=== PATIENT | male | born 1955 | race Hispanic/Latino ===

== ENCOUNTER 2018-10-08 06:00 | Day surgery (SDC) | payer BC ==
[2018-10-08] MEDS ORDERED: ECOTRIN PO NR (06:28)
[2018-10-08 06:53] LABS: Basophils # (Auto) 0.1 K/mm3 (0.0-0.1); Basophils % (Auto) 0.8 % (0.0-1.8); Eosinophils # (Auto) 0.2 K/mm3 (0.0-0.4); Eosinophils % (Auto) 2.6 % (0.0-4.3); Hematocrit 34.5 % (35.5-45.6); Hemoglobin 10.9 gm/dl (11.8-15.2); Lymphocytes # (Auto) 1.7 K/mm3 (1.2-5.4); Lymphocytes % (Auto) 25.5 % (13.4-35.0); Mean Corpuscular HGB Conc 32 % (32-34); Mean Corpuscular Volume 71 fl (84-94); Monocytes # (Auto) 0.7 K/mm3 (0.0-0.8); Monocytes % (Auto) 10.4 % (0.0-7.3); Platelet Count 304 K/mm3 (140-440); Red Cell Distribution Width 19.4 % (13.2-15.2)
[2018-10-08] MEDS ORDERED: NACL 0.9% 500 ML 500 ML IV SCH (07:00)
[2018-10-08 07:04] LABS: BUN/Creatinine Ratio 16; Blood Urea Nitrogen 13 mg/dL (9-20); Calcium 9.5 mg/dL (8.4-10.2); Hemolysis Index 2
[2018-10-08 07:05] LABS: INR 0.96 (0.87-1.13)
[2018-10-08 07:06] LABS: Partial Thromboplastin Time 26.2 Sec. (24.2-36.6)
[2018-10-08] MEDS ORDERED: HEPARIN 10,000 UNITS/10 ML ONE (08:23)
[2018-10-08] MEDS ORDERED: HEPARIN/NS 5000 UNIT/500ML(CATH LAB) 1,000 ML IR ONE (08:23)
[2018-10-08] MEDS ORDERED: NITROGLYCERIN SYRINGE 3 ML ONE (08:24)
[2018-10-08] MEDS ORDERED: CALAN ONE (08:24)
[2018-10-08] MEDS ORDERED: HALFPRIN EC PO ONE (08:30)
[2018-10-08] MEDS: VERSED ONE ×2 (08:57→09:13)
[2018-10-08] MEDS: SUBLIMAZE ONE ×2 (08:58→09:13)
[2018-10-08] MEDS: XYLOCAINE 2% INFILTRATI ONE ×2 (08:58→09:11)
[2018-10-08] MEDS ORDERED: SUBLIMAZE ONE (09:20)
[2018-10-08] MEDS ORDERED: XYLOCAINE 2% INFILTRATI ONE (09:39)
[2018-10-08] MEDS ORDERED: PHENYLEPHRINE/NS Syringe 1,000 MCG/10 ML IV ONE (09:45)
[2018-10-08] MEDS ORDERED: NEO SYNEPHRINE ONE (09:45)
[2018-10-08] MEDS ORDERED: ULTRAM PO PRN (10:34)
--- NOTE | 2018-10-08 10:39 | Short Stay Summary ---
Short Stay Documentation Date of service: 10/08/18 - History H&P: obtained from office - Allergies and Medications Current Medications: Allergies lisinopril Adverse Reaction (Verified 03/05/15 19:27) Angioedema losartan [Losartan] Adverse Reaction (Verified 03/05/15 22:34) Angioedema Home Medications Medication Instructions Recorded Confirmed Last Taken Type Aspirin [Aspirin BABY CHEW TAB] 81 mg PO DAILY 01/19/15 10/08/18 10/07/18 History 81mg AtorvaSTATin [Lipitor] 10 mg PO QHS 01/19/15 10/08/18 10/07/18 History 10mg Clopidogrel Bisulfate [Clopidogrel] 75 mg PO DAILY 01/19/15 10/08/18 10/08/18 05:00 History 75mg ISOSORBIDE MONOnitrate [Imdur ER] 30 mg PO DAILY 01/19/15 10/08/18 10/07/18 History 30mg Metformin HCl 1,000 mg PO BID 01/19/15 10/08/18 10/06/18 History 1000mg Nebivolol (Nf) [Bystolic (Nf)] 10 mg PO DAILY 01/19/15 10/08/18 10/08/18 05:00 History 10mg Cholecalciferol Vit D3 [Vitamin D3 5,000 units PO DAILY 10/08/18 10/08/18 10/07/18 History 1,000 UNIT TAB] 5000units Magnesium Oxide [Mag-Ox] 2 tab PO BID 10/08/18 10/08/18 10/07/18 05:00 History 2 tabs amLODIPine [Norvasc] 5 mg PO DAILY 10/08/18 10/08/18 10/08/18 05:00 History 5mg cloNIDine [Catapres] 0.1 mg PO PRN PRN 10/08/18 10/08/18 10/05/18 History 0.1mg glipiZIDE XL [Glucotrol Xl] 2.5 mg PO DAILY 10/08/18 10/08/18 10/07/18 History 2.5mg Active Medications Aspirin (Ecotrin) 325 mg PO ONCE NR Stop: 10/08/18 16:00 Sodium Chloride (Nacl 0.9% 500 Ml) 500 mls @ 50 mls/hr IV DIRECT GIRMA Stop: 10/08/18 16:59 Last Admin: 10/08/18 08:04 Dose: 50 mls/hr Documented by: - Brief post op/procedure progress note Date of procedure: 10/08/18 Pre-op diagnosis: unstable angina Post-op diagnosis: same Procedure: see report Anesthesia: local Estimated blood loss: none Pathology: none - Disposition Condition at discharge: Good Disposition: [id number] TO HOME OR SELFCARE - Discharge Diagnoses (1) Morbid obesity with BMI of 40.0-44.9, adult Status: Chronic (2) Hyperlipemia, mixed Status: Chronic (3) CAD (coronary artery disease) Status: Chronic Qualifiers: Coronary Disease-Associated Artery/Lesion type: [place] artery Associated angina: with stable angina (4) Carotid stenosis Status: Chronic (5) Diabetes mellitus Status: Chronic Qualifiers: Diabetes mellitus type: type 2 Diabetes mellitus rodent exterminator insulin use: with rodent exterminator use Diabetes mellitus complication status: with circulatory complication Diabetes mellitus complication detail: with other circulatory complications Qualified Code(s): E11.59 - Type 2 diabetes mellitus with other circulatory complications; Z79.4 - alf (current) use of insulin (6) HTN (hypertension) Status: Chronic Short Stay Discharge Plan Activity: advance as tolerated Diet: low fat, low cholesterol, low salt, diabetic Special Instructions: hold Metformin (for two days) Follow up with: JANELL CASTILLO MD [Primary Care Provider] - 7 Days
[2018-10-08] MEDS ORDERED: TYLENOL PO ONE (11:00)
[2018-10-08] MEDS ORDERED: HALFPRIN EC PO SCH (11:00)
--- NOTE | 2018-10-08 12:49 | Cardiac Catherization Report ---
LEFT HEART CATHETERIZATION CLINICAL INFORMATION: This is a 63-year-old gentleman with morbid obesity, diabetes, hypertension, cholesterol, known coronary artery disease with nondrug-eluting stent in the mid LAD and 4.5 x 13 stent in the RCA, but is having recurrent discomfort in chest, is here for suspected coronary artery disease, so procedure was done via sedation. START TIME: 8:57 a.m. FINISHED TIME: 9:55 a.m. SEDATION: 58 minutes of moderate sedation. Procedure was initially tried done via the right radial approach, but unsuccessful, tried to go through the right femoral, it also could not do, so we went through a left radial artery sterile technique, local anesthesia, 6-Portuguese radial sheath inserted. FINDINGS: Left system engaged with a JL3.5 catheter, left main is large and patent, bifurcates into LAD, proximal is patent, mid stent is patent with in-stent restenosis at 30% at the ostial of the diagonal, which is across the stent and has a 90% lesion. Rest of the diagonal was patent of a [id number] caliber vessel. The LAD becomes a small caliber vessel with diffuse disease with distal section with a focal area of 80% of a less than 2-mm vessel. Circumflex proximal is patent, goes into a medium caliber OM1 that has a proximal 90% lesion, distal circ after the OM1 is a small caliber vessel, less than 2.0, has an 80% lesion and then RCA is a large dominant vessel, proximal in-stent restenosis 30-40%, distal patent and bifurcates into a small caliber PDA with multiple branches that are patent with focal areas of 80% stenosis of less than 2 mm vessels in those vessels. LV gram done in [facility] and [facility] shows normal LV function, EF 55-60%, LVEDP 19 mmHg, LV is 145, aortic is 125/57. There is a mild gradient across the aortic valve on pullback. A 5-Portuguese catheter taken over a guidewire. A 6-Portuguese radial sheath was discontinued. Radial band applied. No hematoma, no bleeding. SUMMARY: Significant multivessel disease, left main patent, LAD mid-stent, in-stent restenosis was 30% with distal 80%, ostial diagonal 90%, circumflex distal 80% with proximal RCA, 90% of a medium caliber vessel and RCA proximal in-stent restenosis at 30-40%, distal patent with small PDA, PLV and multiple branches, mild to moderate diffuse disease with normal LV function. The patient will be referred to [place] for bypass versus high risk PCI. Discussed in detail with the patient and the patient's family. [facility]# [id number] AQUILES/DOMINIQUE
[2018-10-08 13:40] VITALS: BP 140/65
--- NOTE | 2018-10-08 14:55 | Anesthesia Consultation ---
Anesthesia Consult and Med Hx Date of service: 10/08/18 - Airway Anesthetic Teeth Evaluation: Edentulous ROM Head & Neck: Adequate Mental/Hyoid Distance: Adequate Mallampati Class: Class III Intubation Access Assessment: Probably Good - Pulmonary Exam CTA: Yes - Cardiac Exam Cardiac Exam: RRR - Pre-Operative Health Status ASA Pre-Surgery Classification: ASA3 Proposed Anesthetic Plan: General - Pulmonary Hx Smoking: Yes (smoked 45 yrs quit 04/20) Hx Asthma: No SOB: Yes (not necessarily while exercising) COPD: No Hx Pneumonia: No - Cardiovascular System Hx Hypertension: Yes Hx Coronary Artery Disease: Yes (cardiac clearance on chart; EF 50%) Hx Heart Attack/AMI: Yes (x2) Hx Percutaneous Transluminal Coronary Angioplasty (PTCA): Yes (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
--- NOTE | 2018-10-08 14:55 | Anesthesia Day of Surgery ---
Anesthesia Day of Surgery - Day of Surgery Patient Examined: Yes Patient H&P Reviewed: Yes Patient is NPO: Yes
== END 2018-10-08 14:05 | disposition home or self-care (01) ==
LOC: CATHLABREC 06:00
PROVIDERS: ATTEND Internal Medicine
DX: T82.855A Stenosis of coronary artery stent, initial encounter (principal); I25.10 Atherosclerotic heart disease of native coronary artery without angina pectoris; E11.51 Type 2 diabetes mellitus with diabetic peripheral angiopathy without gangrene; I10 Essential (primary) hypertension; E78.00 Pure hypercholesterolemia, unspecified; E78.2 Mixed hyperlipidemia; E66.01 Morbid (severe) obesity due to excess calories; I42.9 Cardiomyopathy, unspecified; M19.90 Unspecified osteoarthritis, unspecified site; Z79.899 Other long term (current) drug therapy; Z79.82 Long term (current) use of aspirin; Z79.84 Long term (current) use of oral hypoglycemic drugs; Z87.891 Personal history of nicotine dependence; Z98.61 Coronary angioplasty status; Z98.890 Other specified postprocedural states; Z68.39 Body mass index [BMI] 39.0-39.9, adult; Z96.642 Presence of left artificial hip joint; Z88.8 Allergy status to other drugs, medicaments and biological substances; Y83.8 Other surgical procedures as the cause of abnormal reaction of the patient, or of later complication, without mention of misadventure at the time of the procedure; Y92.89 Other specified places as the place of occurrence of the external cause
CPT/HCPCS: 36415; 80048; 82962; 85025; 85610; 85730; 93010; 93458; 99156; 99157; C1769; C1894; J1644; J2250; J2370; J3010; J7040; 93005; Q9967